=== PATIENT | female | born 1985 | race American Indian/Alaskan Native ===

== ENCOUNTER 2019-11-18 04:18 | Inpatient (IN) | payer OTHER ==
[2019-11-18 06:56] LABS: Bacteria,Urine 2+ /HPF (Negative); Bilirubin,Urine NEG (Negative); Blood,Urine MOD (Negative); Color,Urine Yellow (Yellow); Mucus,Urine 2+ /HPF; Protein,Urine <15 mg/dL mg/dL (Negative); Urobilinogen,Urine < 2.0 mg/dL (<2.0)
[2019-11-18 06:57] LABS: Hematocrit 33.8 % (30.3-42.9); Hemoglobin 11.2 gm/dl (10.1-14.3); Mean Corpuscular HGB Conc 33 % (30-34); Mean Corpuscular Volume 81 fl (79-97); Platelet Count 173 K/mm3 (140-440); Red Cell Distribution Width 15.5 % (13.2-15.2)
[2019-11-18 07:06] LABS: Alanine Aminotransferase 7 units/L (7-56); Uric Acid 4.4 mg/dL (3.5-7.6)
[2019-11-18] MEDS ORDERED: ACETAMINOPHEN 325 MG TAB PO PRN ×2 (08:28→10:51)
[2019-11-18] MEDS ORDERED: ePHEDrine SULFATE 50 MG/1 ML INJ IV PRN (08:28)
[2019-11-18] MEDS ORDERED: TERBUTALINE 1 MG/1 ML INJ SUB-Q PRN (08:28)
[2019-11-18] MEDS ORDERED: MINERAL OIL 30 ML ORAL LIQD PO PRN (08:28)
[2019-11-18] MEDS ORDERED: LIDOCAINE (2%) 20 MG/1 ML VIAL 20 ML MDV INFILTRATI ONE (08:28)
[2019-11-18] MEDS ORDERED: OXYTOCIN DRIP 30 UNITS/500 ML BAG IV SCH (09:00)
[2019-11-18] MEDS ORDERED: OXYTOCIN 20 UNIT/1000ML DRIP 20 UNITS/1,000 ML BAG IV SCH (09:00)
[2019-11-18] MEDS ORDERED: LACTATED RINGERS 1,000 ML IV SCH (09:00)
--- NOTE | 2019-11-18 10:47 | Procedure Note ---
OB Delivery Note - Delivery Date of Delivery: 11/18/19 Surgeon: DINESH BLAKE Estimated blood loss: 100cc - Vaginal Delivery presentation: vertex Delivery position: OA Delivery monitor: external FHT, external uterine Route of delivery: Delivery placenta: spontaneous Episiotomy: none Delivery laceration: none Anesthesia: none - A at 1 minute: 9 at 5 minutes: 9 Gender: Female (weight 7lbs 1oz)
[2019-11-18] MEDS ORDERED: HYDROcodone/ACETAMINOPHEN 5-325 MG TAB PO PRN (10:51)
[2019-11-18] MEDS ORDERED: WITCH HAZEL/ GLYCERIN PAD TP PRN (10:51)
[2019-11-18] MEDS ORDERED: LANOLIN/ZINC/DIMETHICONE (LANSINOH) 7 GM TP PRN (10:51)
[2019-11-18] MEDS ORDERED: ONDANSETRON 4 MG/2 ML INJ IV PRN (10:51)
[2019-11-18] MEDS ORDERED: PROMETHAZINE 25 MG TAB PO PRN (10:51)
[2019-11-18] MEDS ORDERED: MAGNESIUM HYDROXIDE (MOM) ORAL LIQD UDC PO PRN (10:51)
[2019-11-18] MEDS ORDERED: diphenhydrAMINE 25 MG CAP PO PRN (10:51)
--- NOTE | 2019-11-18 10:51 | History and Physical Report ---
History of Present Illness Date of examination: 11/18/19 Date of admission: 11/18/19 08:17 Chief complaint: Contractions History of present illness: 34y/o -0-1-5 at 39+4 weeks who presents in active labor with advanced cervical dilatation. She denies leakage of fluid or vaginal bleeding. The patient is GBS status is negative. Her is complicated by late presentation of care in the second trimester. Past History Past Medical History: other (Alpha thalassemia carrier) Past Surgical History: no surgical history Social history: - Obstetrical History Expected Date of Delivery: 11/21/19 Actual Gestation: 39 Week(s) 4 Day(s) : 7 Para: 5 Hx # Term Pregnancies: 5 Number of Pregnancies: 0 Spontaneous Abortions: 1 Induced : 0 Number of Living Children: 5 Medications and Allergies Allergies Allergy/AdvReac Type Severity Reaction Status Date / Time No Known Allergies Allergy Verified 11/18/19 08:31 Home Medications Medication Instructions Recorded Confirmed Last Taken Type No Known Home Medications [No 11/18/19 11/18/19 Unknown History Reported Home Medications] Active Meds: Active Medications Acetaminophen (Tylenol) 650 mg PO Q4H PRN PRN Reason: Pain, Mild (1-3) Ephedrine Sulfate (Ephedrine Sulfate) 10 mg IV Q2M PRN PRN Reason: Hypotension Oxytocin/Sodium Chloride (Pitocin/Ns 30 Unit/500ml) 30 units in 500 mls @ 2 mls/hr IV TITR ELLEN; Protocol Lactated Ringer's (Lactated Ringers) 1,000 mls @ 125 mls/hr IV DIRECT ELLEN Oxytocin/Sodium Chloride (Pitocin/Ns 20 Unit/1000ml Drip) 20 units in 1,000 mls @ 125 mls/hr IV DIRECT ELLEN Mineral Oil (Mineral Oil) 30 ml PO QHS PRN PRN Reason: Constipation Terbutaline Sulfate (Brethine) 0.25 mg SUB-Q ONCE PRN PRN Reason: Hyperstimulation/Hypertonicity Review of Systems All systems: negative Genitourinary: pelvic pain, contractions - Vital Signs Vital signs: Vital Signs Temp Pulse Resp BP Pulse Ox 98.4 F 96 H 18 139/96 99 11/18/19 04:40 11/18/19 04:40 11/18/19 04:40 11/18/19 04:40 11/18/19 04:40 Temp Pulse Resp BP Pulse Ox 98.1 F 73 18 138/83 99 11/18/19 10:15 11/18/19 10:18 11/18/19 09:20 11/18/19 10:18 11/18/19 07:54 - Physical Exam Breasts: Positive: deferred Cardiovascular: Regular rate Lungs: Positive: Clear to auscultation Abdomen: Positive: normal appearance Results Result Diagrams: 11/18/19 06:00 11/18/19 06:00 Abnormal lab results 11/18/19 11/18/19 Range/Units 06:00 06:00 MCH 27 L (28-32) pg RDW 15.5 H (13.2-15.2) % Lactate Dehydrogenase 215 H (91-180) units/L All other labs normal. Assessment and Plan - Patient Problems (1) Active labor at term Current Visit: Yes Status: Acute Plan to address problem: Admit to labor and delivery (2) Grand multiparity Current Visit: Yes Status: Acute
[2019-11-18] MEDS: IBUPROFEN 600 MG TAB PO SCH ×2 (11:41→18:25)
[2019-11-19] MEDS: IBUPROFEN 600 MG TAB PO SCH ×3 (00:33→11:18)
[2019-11-19 00:50] LABS: Hematocrit 31.3 % (30.3-42.9); Hemoglobin 10.3 gm/dl (10.1-14.3); Mean Corpuscular HGB Conc 33 % (30-34); Mean Corpuscular Volume 81 fl (79-97); Platelet Count 174 K/mm3 (140-440); Red Blood Count 3.87 M/mm3 (3.65-5.03); Red Cell Distribution Width 15.3 % (13.2-15.2)
--- NOTE | 2019-11-19 08:14 | Progress Note ---
Assessment and Plan A: PPD#1 s/p at term, Gestational Hypertension P: Routine care. Discharge home if baby able to go home. Subjective - Subjective Date of service: 11/19/19 Principal diagnosis: s/p at term, Gestational Hypertension Interval history: No complaints. Pt anxious to go home. Patient reports: appetite normal, voiding normally, pain well controlled, ambulating normally : doing well Objective - Vital Signs Latest vital signs: Vital Signs Temp Pulse Resp BP Pulse Ox 11/19/19 02:11 98.0 F 66 18 121/78 99 11/18/19 21:12 98.2 F 84 18 130/79 100 11/18/19 17:04 97.9 F 83 18 134/83 99 11/18/19 12:21 98.4 F 81 18 134/74 99 11/18/19 11:18 74 129/85 11/18/19 11:03 68 130/79 11/18/19 10:48 92 H 132/99 11/18/19 10:47 65 134/76 11/18/19 10:18 73 138/83 11/18/19 10:15 98.1 F 11/18/19 09:20 98.8 F 18 11/18/19 08:48 100 H 141/91 Intake and Output 11/18/19 11/19/19 11/19/19 22:59 06:59 14:59 Intake Total 360 840 Output Total 400 Balance -40 840 Intake: Oral 480 Intake, Free Water 360 360 Output: Urine 400 Void 400 Other: Total, Intake Amount 240 Total, Output Amount 400 # Voids Void 1 - Exam Breasts: Present: deferred Abdomen: Present: soft Uterus: Present: fundal height below umbilicus Extremities: Present: normal - Labs Labs: Abnormal lab results 11/18/19 Range/Units 23:18 MCH 27 L (28-32) pg RDW 15.3 H (13.2-15.2) %
--- NOTE | 2019-11-19 08:14 | Discharge Summary ---
Providers - Providers Date of Admission: 11/18/19 08:17 Date of discharge: 11/19/19 Attending physician: DINESH BLAKE Primary care physician: DINESH BLAKE Hospitalization Reason for admission: active labor Delivery: Procedure details: Please see delivery note. Episiotomy: none Laceration: none Other procedures: none complications: none Discharge diagnosis: IUP at term delivered [place] baby: female Hospital course: Pt was admitted in active labor and went on to have a spontaneous vaginal delivery which she tolerated well. Her course was complicated by gestational hypertension. She will follow up in 1 week for a blood pressure check. Condition at discharge: Stable Disposition: DC- TO HOME OR SELFCARE - Discharge Diagnoses (1) Obesity Status: Acute Qualifiers: Body mass index: BMI 37.0-37.9 (2) Active labor at term Status: Acute (3) Grand multiparity Status: Acute (4) Term of female Status: Acute Plan - Discharge Medications Prescriptions: Ibuprofen [Motrin] 800 mg PO Q8HR PRN #30 tablet PRN Reason: Pain, Moderate (4-6) - Provider Discharge Summary Activity: routine, no sex for 6 weeks, no heavy lifting 4 weeks, no strenuous exercise Diet: routine Instructions: routine Additional instructions: [] Smoking cessation referral if applicable(refer to patient education folder for contact #) [] Refer to [facility] Booklet Call your doctor immediately for: * Fever > 100.5 * Heavy vaginal bleeding ( >1 pad per hour) * Severe persistent headache * Shortness of breath * Reddened, hot, painful area to leg or breast * Drainage or odor from incision. * Keep incision clean and dry at all times and follow doctor's instructions regarding bathing/showering - Follow up plan Follow up: LUZ VARELA CNM [Advanced Practice Nurse] - 7 Days (Please call to schedule a blood pressure check. )
[2019-11-19 12:26] VITALS: BP 138/80
== END 2019-11-19 13:30 | disposition home or self-care (01) | DRG 807 ==
LOC: TRG 04:18 → APU 04:21 → LD 08:15 → TRG 08:16 → LD 08:17 → OB 12:29
PROVIDERS: ADMIT Obstetrics & Gynecology; ATTEND Obstetrics & Gynecology
PROC: 10E0XZZ Delivery of Products of Conception, External Approach (ICD-10-PCS; principal; 2019-11-18)
DX: O13.4 Gestational [pregnancy-induced] hypertension without significant proteinuria, complicating childbirth (principal); Z37.0 Single live birth; O99.214 Obesity complicating childbirth; Z3A.39 39 weeks gestation of pregnancy; Z64.1 Problems related to multiparity; E66.9 Obesity, unspecified
CPT/HCPCS: 36415; 81001; 82565; 83615; 84450; 84460; 84550; 85014; 85018; 85027; 86850; 86900; 86901; G0378; A6250; J2590; U0003-CS